=== PATIENT | female | born 1980 | race Caucasian/White ===

== ENCOUNTER → 2017-05-09 | Outpatient (CLI) | payer OTHER ==
[~2017-05-09] MED LIST: SULFUR HEXAFLUORIDE MICROSPHR 25 MG VIAL. IVP ONE
--- NOTE | 2017-05-09 15:24 | PCVCIMAG ---
APPROVED REPORT Study performed: 05/09/2017 13:39:16 EXAM: Comprehensive 2D, Doppler, and color-flow Echocardiogram Patient Location: Echo lab Status: routine Other Information Study Quality: Technically Limited Indications Hypertension/HDD Family History of CAD. Echo Enhancing Agent Agent(s) / Amount(s) Used: Lumason cc 2D Dimensions IVSd: 13.07 (7-11mm)LVOT Diam: 19.51 (18-24mm) LVDd: 48.14 mm PWd: 11.57 (7-11mm)Ascending Ao: 25.57 (22-36mm) LVDs: 32.31 (25-40mm) Left Atrium: 36.19 (27-40mm) Aortic Root: 22.79 mm Nevarez's LVEF: 61.26 % Aortic Valve AoV Peak Dany.: 1.16 m/s AO Peak Gr.: 5.41 mmHg Mitral Valve E/A Ratio: 1.3 MV Decel. Time: 214.85 ms MV E Max Dany.: 0.88 m/s MV A Dany.: 0.70 m/s IVRT: 107.27 ms Pulmonary Valve PV Peak Gr.: 4.94 mmHg Left Ventricle The left ventricle is normal size. There is normal LV segmental wall motion. There is normal left ventricular wall thickness. Left ventricular systolic function is normal. The left ventricular ejection fraction is within the normal range. LVEF is >55%. The left ventricular diastolic function is normal. Right Ventricle The right ventricle is normal size. The right ventricular systolic function is normal. Atria The left atrium size is normal. The right atrium size is normal. Aortic Valve The aortic valve is normal in structure. No aortic regurgitation is present. There is no aortic valvular stenosis. Mitral Valve The mitral valve is normal in structure. There is no mitral valve regurgitation noted. No evidence of mitral valve stenosis. Tricuspid Valve The tricuspid valve is normal in structure. There is no tricuspid valve regurgitation noted. Pulmonic Valve The pulmonary valve is normal in structure. There is no pulmonic valvular regurgitation. Great Vessels The aortic root is normal in size. IVC is normal in size and collapses with >50% inspiration Pericardium There is no pericardial effusion. <Conclusion> The left ventricle is normal size. Left ventricular systolic function is normal. The right ventricle is normal size. The left atrium size is normal. The right atrium size is normal. The aortic valve is normal in structure. The mitral valve is normal in structure. There is no pericardial effusion.
--- NOTE | 2017-05-09 17:10 | PCVCIMAG ---
APPROVED REPORT Patient Location: Out-Patient Room #: The patient exercised according to the REJI PROTOCOL for 4:15 minutes;achieving a work level of Max METS: 7.20. The resting heart rate of 72 bpm tonny to a maximal heart rate of 166 bpm. This erpresents 90% of the maximal, age-predicted heart rate. The resting blood pressure of 118/70 mmHg tonny to a maximum blood pressure of 204/70 mmHg. The exercise test was stopped due to fatigue. Stress ECG: The resting ECG reveals sinus rhythm. During exercise, there were no significant arrhythmias or ST segment changes. Impression 1. Clinical response, nonischemic. 2. Stress ECG response, nonischemic. 3. Exercise capacity, below average. Conclusion
== END | disposition home or self-care (01) ==
LOC: PCVCIMAG 13:25
PROVIDERS: ATTEND Internal Medicine Cardiovascular Disease
DX: I10 Essential (primary) hypertension (principal); E78.00 Pure hypercholesterolemia, unspecified; M19.90 Unspecified osteoarthritis, unspecified site; E78.5 Hyperlipidemia, unspecified; Z79.899 Other long term (current) drug therapy; Z87.891 Personal history of nicotine dependence
CPT/HCPCS: 93017; 93306; G0463; Q9950